=== PATIENT | male | born 1945 | race Caucasian/White ===

== ENCOUNTER → 2016-09-09 | Outpatient (CLI) | payer MEDICARE ==
--- NOTE | 2016-09-09 13:23 | MM ---
Reason for exam: clinical finding. Baseline mammogram. History: Patient history of other cancer. Indicated problem(s): palpable abnormality in the left breast. Physical Findings: Nurse did not find any significant physical abnormalities on exam. MG 3D Diag Mammo W/Cad CARMEN Bilateral CC and MLO view(s) were taken. There are scattered fibroglandular densities. Focal asymmetry in the left retroareolar position. ASSESSMENT: Probably benign, BI-RAD 3 RECOMMENDATION: Follow-up diagnostic mammogram of the left breast in 6 months.
--- NOTE | 2016-09-09 13:28 | USB ---
Reason for exam: clinical finding. History: Patient history of other cancer. Indicated problem(s): palpable abnormality in the left breast. US Breast LT Left breast ultrasound includes all four quadrants, the retroareolar region and axilla. Finding demonstrates a 2.2 x 2.0 x 0.8cm oval, irregular, hypoechoic lesion at the nipple. These results were verbally communicated with the patient and result sheet given to the patient on 09/09/16. ASSESSMENT: Probably benign, BI-RAD 3 RECOMMENDATION: Follow-up diagnostic mammogram of the left breast in 6 months. Manage on a clinical basis.
== END | disposition home or self-care (01) ==
LOC: RADMAMWWP 07:29
PROVIDERS: ATTEND Family Medicine
DX: N63 Unspecified lump in breast (principal); R92.8 Other abnormal and inconclusive findings on diagnostic imaging of breast
CPT/HCPCS: 76641; G0204; G0279

== ENCOUNTER → 2016-09-29 | Day surgery (SDC) | payer MEDICARE ==
--- NOTE | 2016-09-29 15:17 | USB ---
EXAMINATION TYPE: US biopsy breast VAD LT, MG diagnostic mammo LT wo CAD DATE OF EXAM: 09/29/2016 CLINICAL HISTORY: L Axilla Mass R22.9 N63 Breast Mass Left. TECHNIQUE: Ultrasound guided core biopsy of left breast with clip placement and follow-up single view diagnostic left breast mammogram. COMPARISON: Left breast ultrasound and 3-D mammogram September 09, 2016. FINDINGS: The procedure of ultrasound guided core biopsy was explained to the patient. Benefits, alternatives, and risks were discussed. An informed consent was then obtained. Biopsy left breast mass is performed as requested by ordering surgeon despite suspected gynecomastia. Patient and family also wish to have biopsy. The patient was placed in supine positioning for imaging and for the procedure. Preprocedure scanning redemonstrates a flame-shaped hypoechoic area subareolar region of left breast unchanged from prior study. Scanning of left axilla shows slightly prominent but benign-appearing left axillary lymph nodes. No suspicious adenopathy is clearly seen to warrant biopsy at this time. The overlying skin was prepped and draped in usual sterile fashion. Lidocaine was used as anesthetic into the skin. Lidocaine with epinephrine is used as anesthetic into the deeper tissue up to area of concern in the left breast. Under ultrasound guidance, a 12-gauge vacuum assisted biopsy gun device was used to obtain 3 core samples. Following this, a biopsy clip was left in lesion. The patient tolerated the procedure well without any immediate complication. The patient was kept in the radiology department for short stay after the procedure and then discharged home in stable condition. Postprocedure mammogram confirmed successful deployment of clip. IMPRESSION: Successful, uncomplicated ultrasound guided core biopsy of area of concern in the left breast, full pathology results to follow. Low index of suspicion noted at time of procedure. Strongly favor gynecomastia. Pathology Results: Benign BREAST, LEFT, CORE BIOPSY: GYNECOMASTIA. Recommendation No follow up needed, manage clinically. JOHANND
--- NOTE | 2016-10-03 07:49 | USB ---
Reason for exam: additional evaluation requested from abnormal screening. History: Patient history of other cancer. US Breast LT Left breast ultrasound demonstrates a 2.7 x 1.8 x 0.1cm hypoechoic lesion at the nipple consistent with gynecomastia, stable. Left axilla ultrasound demonstrates a 0.9 x 0.5 x 0.7cm node and a 2.6 x 1.1 x 1.8cm node. Normal appearing lymph nodes. These results were verbally communicated with the patient and result sheet given to the patient on 09/29/16. ASSESSMENT: Benign, BI-RAD 2 RECOMMENDATION: Clinical management of the left breast. Manage patient on a clinical basis.
== END ==
LOC: RADPROWWP 12:34
PROVIDERS: ATTEND Surgery
DX: N62 Hypertrophy of breast (principal); R92.8 Other abnormal and inconclusive findings on diagnostic imaging of breast; Z85.9 Personal history of malignant neoplasm, unspecified
CPT/HCPCS: 88305; 19083; 76641; G0206; A4648

== ENCOUNTER → 2016-10-17 | Outpatient (CLI) | payer MEDICARE ==
[2016-10-17 11:07] LABS: Follicle Stimulating Hormone 9.6 mIU/mL; Prolactin 19.5 ng/mL (3.7-17.9)
== END | disposition home or self-care (01) ==
LOC: LABWHC1 09:59
PROVIDERS: ATTEND Surgery
DX: N62 Hypertrophy of breast (principal)
CPT/HCPCS: 36415; 82626; 82670; 83001; 83002; 84146; 84403; 84443; 84702

== ENCOUNTER → 2017-01-25 | Outpatient (CLI) | payer MEDICARE ==
[2017-01-25 18:00] LABS: Blood Urea Nitrogen 31 mg/dL (9-20); Non-African American GFR(MDRD) >60 (>60 ml/min/1.73 sqM)
--- NOTE | 2017-01-25 19:07 | CT ---
EXAMINATION TYPE: CT chest w con DATE OF EXAM: 01/25/2017 COMPARISON: NONE HISTORY: shortness of breath CT DLP: 510 mGycm Automated exposure control for dose reduction was used. CONTRAST: CT scan of the chest is performed with IV Contrast, patient injected with 100 mL of Omnipaque 300. FINDINGS: LUNGS: 4 cm right sided pleural effusion. Associated basilar compressive atelectasis. Small left-side d pleural effusion. No evidence of focal consolidation. No distinct pulmonary mass. No evidence for c ongestive failure. MEDIASTINUM: There are no greater than 1 cm hilar or mediastinal lymph nodes. No pericardial effusi on is seen. Thoracic aorta is of normal caliber. The heart is enlarged. UPPER ABDOMEN: Renal cystic changes. OTHER: No additional significant abnormality is seen. IMPRESSION: 1 right-sided pleural effusion with the right basilar compressive atelectasis. No eviden ce for consolidative process or congestive failure.
== END | disposition home or self-care (01) ==
LOC: RADCTMAIN 12:28
PROVIDERS: ATTEND Physician Assistant
DX: J98.11 Atelectasis (principal); J90 Pleural effusion, not elsewhere classified
CPT/HCPCS: 82565; 84520; 71260; 36415; Q9967